=== PATIENT | male | born 1995 | race Caucasian/White ===

== ENCOUNTER 2024-07-08 04:32 | Emergency (ER) | payer OTHER, SELFPAY ==
[2024-07-08 05:07] VITALS: BP 146/93; PULSE 105; TEMP 37.1; BMI 27.6
--- NOTE | 2024-07-08 05:12 | PC.NURSE ---
Low back pain radiating down right side, no known injury.
--- NOTE | 2024-07-08 05:51 | CT_ITS ---
The [address] [address] Patient Name: JEWEL UNDERWOOD MRN: [id number] date: 1995 Sex: M Assigned Patient Location: ER Current Patient Location: ED.MAIN Accession/Order Number: [id number] Exam Date: 07/08/2024 06:36 Report Date: 07/08/2024 07:27 At the request of: RANDI MARKER Procedure: CT lumbar spine wo con PROCEDURE: CT lumbar spine wo con COMPARISON: None. HISTORY: Right sided severe LBP TECHNIQUE: Axial, Coronal, and Sagittal CT images obtained without IV contrast. Dose reduction techniques were achieved by using automated exposure control and/or adjustment of mA and/or kV according to patient size and/or use of iterative reconstruction technique. FINDINGS: PARASPINAL AREA: Normal with no visible mass. DISCS: Normal BONES: Normal alignment with no acute fracture or spondylolisthesis OTHER: Negative. CT/CT lumbar spine wo con IMPRESSION: No acute abnormality Electronically authenticated by: LUL MOHAN Date: 07/08/2024 07:27
[2024-07-08] MEDS: DIAZEPAM 5 MG TABLET PO (06:07)
[2024-07-08] MEDS: ONDANSETRON 4 MG RAPDIS TABLET SL (06:07)
[2024-07-08] MEDS: HYDROMORPHONE HCL 1 MG/ML CARTRIDGE IM (06:08)
[2024-07-08] MEDS: METHYLPREDNISOLONE SOD SUCC PF 125 MG/2 ML VIAL IVP (06:08)
--- NOTE | 2024-07-08 06:19 | ED_ITS ---
HPI HPI - Back Pain/Injury General Chief Complaint: Back Pain/Injury Stated Complaint: back pain Time Seen by Provider: 07/08/24 05:36 Source: patient Mode of arrival: walk-in Limitations: no limitations History of Present Illness HPI Narrative: This 28-year-old male with a history of somewhat chronic but intermittent right sided low back pain who has been told that he has arthritis that is out of proportion to his age presents for evaluation of right sided low back pain that radiates down into his buttock. The patient states that he has not been able to sleep all night. He cannot get comfortable sitting or lying down. He has been seen by a physical therapist at the past and was told that his right leg was a little bit shorter than the left leg and he was given a lift for his shoe. He states that since that time he has not had severe back spasms until Sunday. He does admit that he did some moderately heavy lifting on Sunday and since that time is been having increasing low back pain. He denies any fever. He denies any falls. He denies any specific weakness or numbness. He has not had any loss of bowel or bladder control. Related Data Allergies Allergy/AdvReac Type Severity Reaction Status Date / Time cephalexin [From Keflex] Allergy Hives Verified 07/08/24 05:06 Opioid HPI Opioid Management Most Recent Opioid Data: No Data to Display Review of Systems ROS Status of ROS 10 or more systems reviewed and unremark able except as noted in history and below Exam Narrative Exam Narrative: Vital signs and Nursing Notes reviewed: Patient is afebrile, he is tachycardic with a pulse of 105, blood pressure is elevated at 146/93 General: Awake, alert, oriented, uncomfortable appearing adult male, he is walking with 1 crutch to assist the right side due to right-sided back pain, no respiratory distress HEENT: Normocephalic atraumatic, mucous membranes are moist and pink, eyes are clear, normal conjunctiva, vision is grossly intact Neck: Midline bony vertebral tenderness Chest: Lungs are clear to auscultation with good air entry, there is no wheezing rhonchi or rales appreciated no accessory muscle use, patient is speaking in complete sentences-no chest wall tenderness to palpation CVS: Regular rate and rhythm S1-S2, no murmurs rubs or gallops, pulses are brisk and equal bilaterally ABD: Soft, nondistended, nontender, no rebound guarding or rigidity, bowel sounds are normal, no pulsatile masses appreciated Extremities: Moving all extremities, no lower extremity tenderness or swelling noted, mild tenderness at the right sacroiliac region without skin rash or notable abnormality Skin: Normal in appearance without rash,pallor, petechiae or purpura Neuro: No focal deficits, upper and lower extremity strength and sensation is intact, there is no saddle anesthesia, deep tendon reflexes were diminished bilaterally but equal Constitutional Vital Signs, click to edit/add: Last Vital Signs Temp 98.7 F 07/08/24 05:07 Pulse 105 H 07/08/24 05:07 Resp 18 07/08/24 05:07 BP 146/93 H 07/08/24 05:07 Course Vital Signs Vital signs: Vital Signs Temperature 98.7 F 07/08/24 05:07 Pulse Rate 105 H 07/08/24 05:07 Respiratory Rate 18 07/08/24 05:07 Blood Pressure 146/93 H 07/08/24 05:07 Temperature 98.7 F 07/08/24 05:07 Pulse Rate 105 H 07/08/24 05:07 Respiratory Rate 18 07/08/24 05:07 Blood Pressure 146/93 H 07/08/24 05:07 MDM - Back Pain/Injury MDM Narrative Medical decision making narrative: This 28-year-old male with a history of intermittent but somewhat chronic low back pain who has not had a flare of his back pain for the past 2 years presents for evaluation of severe right-sided back pain. His tenderness is mostly at the sacroiliac region but does radiate down into his buttocks. He has not had any loss of bowel or bladder control. He does not have a history of drug use. He was told in the past that his right leg is mildly shorter than the left leg and he was given a lift for his shoe at that time. He has not had any difficulty with his back for the past 2 weeks until Sunday when he was doing some heavy lifting at home. His neuroexam is normal. He has not had any fever or chills. He has not had any loss of bowel or bladder control. There is no swelling of his legs concerning for DVT. He was medicated with IM Solu-Medrol, IM Dilaudid, oral Zofran and Discharge Plan Discharge Chief Complaint: Back Pain/Injury Clinical Impression: Back pain, lumbosacral Patient Disposition: Still a Patient Print Language: [place] Referrals: ALEXANDER EDDY [Primary Care Provider] - 1 week
[2024-07-08] MEDS: KETOROLAC TROMETHAMINE 60 MG/2 ML VIAL IM (06:51)
[2024-07-08 07:40] VITALS: BP 138/88; PULSE 86; O2SAT 98
--- NOTE | 2024-07-08 07:49 | ED_ITS ---
HPI HPI - Back Pain/Injury General Chief Complaint: Back Pain/Injury Stated Complaint: back pain Time Seen by Provider: 07/08/24 05:36 Source: patient Mode of arrival: walk-in Limitations: no limitations History of Present Illness HPI Narrative: 28-year-old male presented to the emergency department and was initially seen by Dr. Bernstein and signed out to me after discussing the case with her thoroughly. Please see her full history and physical exam. Related Data Previous Rx's ?Medication ?Instructions ?Recorded acetaminophen 300 mg-codeine 30 mg 1 tab PO Q6H PRN pain 5 days #20 07/08/24 tablet tabs ibuprofen 800 mg tablet 800 mg PO Q8H PRN pain #20 tabs 07/08/24 methocarbamol 750 mg tablet 750 mg PO Q6H PRN pain #20 tabs 07/08/24 Allergies Allergy/AdvReac Type Severity Reaction Status Date / Time cephalexin [From Keflex] Allergy Hives Verified 07/08/24 05:06 Opioid HPI Opioid Management Most Recent Opioid Data: No Data to Display Exam Constitutional Vital Signs, click to edit/add: Last Vital Signs Temp 98.7 F 07/08/24 05:07 Pulse 86 07/08/24 07:40 Resp 18 07/08/24 07:40 BP 138/88 07/08/24 07:40 Pulse Ox 98 07/08/24 07:40 Course Vital Signs Vital signs: Vital Signs Temperature 98.7 F 07/08/24 05:07 Pulse Rate 105 H 07/08/24 05:07 Respiratory Rate 18 07/08/24 05:07 Blood Pressure 146/93 H 07/08/24 05:07 Temperature 98.7 F 07/08/24 05:07 Pulse Rate 86 07/08/24 07:40 Respiratory Rate 18 07/08/24 07:40 Blood Pressure 138/88 07/08/24 07:40 Pulse Oximetry 98 07/08/24 07:40 MDM - Back Pain/Injury MDM Narrative Medical decision making narrative: CT scan is negative per radiologist and the patient will be discharged home and treated symptomatically. Treatment diagnosis and follow-up were discussed with the patient. Differential Diagnosis Differential diagnosis: Likely lumbar radiculopathy, sciatica and strain of lumbar region Imaging Data CT lumbar spine: Radiologist's impression: ITS Impressions Lumbar Spine CT 07/08/24 05:51 IMPRESSION: No acute abnormality Electronically authenticated by: LUL MOHAN Date: 07/08/2024 07:27 Discharge Plan Discharge Stand Alone Forms: Portal Instructions Chief Complaint: Back Pain/Injury Clinical Impression: Back pain, lumbosacral Patient Disposition: Home, Self-Care Time of Disposition Decision: 07:47 Condition: Good Mode of Transportation: Private Vehicle Prescriptions / Home Meds: New acetaminophen-codeine 300-30 mg tablet 1 tab PO Q6H PRN (Reason: pain) 5 Days Qty: 20 0RF ibuprofen 800 mg tablet 800 mg PO Q8H PRN (Reason: pain) Qty: 20 0RF methocarbamol 750 mg tablet 750 mg PO Q6H PRN (Reason: pain) Qty: 20 0RF Print Language: Croatian Instructions: Acute Low Back Pain (ED) Referrals: ALEXANDER EDDY [Primary Care Provider] - 1 week
== END 2024-07-08 07:53 | disposition home or self-care (01) ==
PROVIDERS: Emergency Provider Emergency Medicine; PCP Family Medicine
DX: M54.50 Low back pain, unspecified (principal)
CPT/HCPCS: 72131; 96372; 96374; 99284; J1170; J1885; J2919; Q0162